=== PATIENT | male | born 1950 | race Caucasian/White ===

== ENCOUNTER 2024-02-05 17:30 | Inpatient (IN) | payer OTHER ==
[~2024-02-05] VITALS: Ht 162.6 cm; Wt 59.0 kg
[~2024-02-05 17:30] MED LIST: AVALIDE 300/12.1 TAB; TENORMIN100 M1; TOPROL XL200 MG
[2024-02-05] MEDS ORDERED: 0.9 % SODIUM CHLORIDE 250 ML IV STA (17:59)
[2024-02-05] MEDS ORDERED: 0.9 % SODIUM CHLORIDE 1,000 ML IV STA (18:01)
[2024-02-05 18:37] LABS: HEMOGLOBIN 10.6 g/dL (13-16.00); MEAN CELL VOLUME 102.6 fL (80.0-100.00); MEAN CORPUSCULAR HGB CONC 33.2 g/dl (32.0-36.0); PLATELET COUNT 201 K/uL (150-450); RED BLOOD COUNT 3.12 M/uL (4.00-6.00)
[2024-02-05 18:49] LABS: ALBUMIN 1.9 gm/dL (3.4-5.0); BILIRUBIN TOTAL 0.6 mg/dL (0.3-1.2); CALCIUM 7.1 mg/dL (8.5-10.1); GLOBULINA 3.2 G/DL (2.4-3.5); POTASSIUM 5.86 mEq/L (3.5-5.1); TOTAL PROTEIN 5.1 gm/dL (6.4-8.2)
[2024-02-05 18:50] LABS: MAGNESIUM 1.9 mg/dL (1.8-2.4)
[2024-02-05 18:56] LABS: GFR 4.13
[2024-02-05 18:57] LABS: INR 1.27; PROTHROMBIN TIME 13.6 SECONDS (9.0-11.5)
[2024-02-05 18:59] LABS: PHOSPHOROUS 10.1 mg/dL (2.5-4.9)
[2024-02-05 19:01] LABS: CREATININE SERUM 12.1 mg/dL (0.70-1.30)
[2024-02-05] MEDS ORDERED: SODIUM POLYSTYRENE SULFONATE 15 G/4 TSP TSP PO SCH (19:36)
[2024-02-05] MEDS ORDERED: INSULIN REGULAR, HUMAN 1,000 UNIT/10 ML UNITS IV ONE (19:45)
[2024-02-05] MEDS ORDERED: DEXTROSE 50 % IN WATER 0.5 G/ML VIAL IV ONE (19:45)
[2024-02-05] MEDS ORDERED: SODIUM BICARBONATE 100 MEQ in SODIUM CHLORIDE 0.45 % 1,000 ML IV ONE (19:45)
[2024-02-05] MEDS ORDERED: ACETAMINOPHEN 500 MG GEL..CAP PO PRN (19:45)
[2024-02-05] MEDS ORDERED: CALCIUM GLUCONATE 100 MG/ML VIAL IV ONE (19:45)
[2024-02-05] MEDS ORDERED: HEPARIN SODIUM,PORCINE 5,000 UNITS/ML VIAL IV STA (20:10)
[2024-02-05 20:15] VITALS: BP 103/50; O2SAT 96
[2024-02-05 20:15] LABS: ABG PH 7.224 (7.35-7.45); ABG PO2 62.7 mmHg (80-100); ABG pCO2 37.1 mmHg (35-45)
[2024-02-05 20:16] LABS: BASE EXCESS -11.8 mmol/l; SaO2 84.9 %; Tco2 16.1 mmol/l; allen test SATISFACTORY; o2 21 %; puncture site RADIAL RIGHT
[2024-02-05 20:26] VITALS: BP 103/50
[2024-02-05 20:41] LABS: URINE APPEARANCE Turbid; URINE BILIRRUBIN Small (NEGATIVE); URINE BLOOD Large; URINE COLOR Red; URINE GLUCOSE Negative (NEGATIVE); URINE KETONE Trace (NEGATIVE); URINE LEUKOCYTE Large; URINE NITRATE Negative; URINE UROBILINOGEN 0.2 E.U./dl
[2024-02-05 20:44] LABS: URINE EPITHELIAL CELLS 106.6 uL (0.0-38.8)
[2024-02-05] MEDS ORDERED: CITRIC ACID/SODIUM CITRATE 30 ML BLIST.PACK PO SCH (21:00)
[2024-02-05] MEDS ORDERED: PIPERACILLIN/TAZOBACTAM SODIUM 2.25 GM in DEXTROSE 5 % IN WATER 50 ML IV SCH (21:00)
[2024-02-05 21:10] LABS: URINE BACTERIA > 9821.5 uL (0.0-1933); URINE PROTEIN 300 (NEGATIVE); URINE RBC > 10558.9 uL (0.0-20.8); URINE WBC > 5548.3 uL (0.0-23.2)
[2024-02-05] MEDS ORDERED: TRAMADOL HCL 50 MG TABLET PO ONE (21:15)
[2024-02-06] VITALS (14 sets, daily range): BP systolic 75–142; BP diastolic 43–99; O2SAT 100
[2024-02-06 06:30] LABS: HEMATOCRIT 28.1 % (39.0-48.0); HEMOGLOBIN 9.6 g/dL (13-16.00); MEAN CELL VOLUME 102.2 fL (80.0-100.00); MEAN CORPUSCULAR HEMOGLOBIN 34.8 pg (27.00-32.0); PLATELET COUNT 183 K/uL (150-450); RED BLOOD COUNT 2.75 M/uL (4.00-6.00); RED CELL DISTRIBUTION WIDTH 15.1 % (11.5-14.5)
[2024-02-06 07:08] LABS: ALBUMIN 1.6 gm/dL (3.4-5.0); BILIRUBIN TOTAL 0.67 mg/dL (0.3-1.2); CALCIUM 6.8 mg/dL (8.5-10.1); GLOBULINA 2.7 G/DL (2.4-3.5); POTASSIUM 5.24 mEq/L (3.5-5.1); TOTAL PROTEIN 4.3 gm/dL (6.4-8.2)
[2024-02-06 07:25] LABS: GFR 4.34
[2024-02-06 07:28] LABS: CREATININE SERUM 11.6 mg/dL (0.70-1.30)
[2024-02-06 08:12] LABS: TSH 0.679 uIU/mL (0.358-3.74)
[2024-02-06] MEDS ORDERED: SODIUM POLYSTYRENE SULFONATE 15 G/4 TSP TSP PO SCH (09:00)
[2024-02-06] MEDS ORDERED: ENOXAPARIN SODIUM 30 MG/0.3 ML SYRINGE SUBCUTANEO SCH (09:00)
[2024-02-06] MEDS ORDERED: PANTOPRAZOLE SODIUM 40 MG/VIAL VIAL IV SCH (09:00)
[2024-02-06] MEDS ORDERED: SODIUM BICARBONATE 50MEQ/50ML VIAL IV SCH (10:45)
[2024-02-06] MEDS ORDERED: PIPERACILLIN/TAZOBACTAM SODIUM 2.25 GM VIAL IV SCH (13:00)
[2024-02-06] MEDS ORDERED: HEPARIN SODIUM,PORCINE 1,000 UNITS/ML VIAL SPEPROC PRN (13:15)
[2024-02-06] MEDS ORDERED: NOREPINEPHRINE BITARTRATE 8 MG IV SCH (13:30)
[2024-02-06] MEDS ORDERED: NOREPINEPHRINE BITARTRATE 8 MG in DEXTROSE 5 % IN WATER 250 ML IV SCH (13:45)
[2024-02-06] MEDS ORDERED: LACTOBACILLUS ACIDOPHILUS 1 CAP CAP PO SCH (17:00)
[2024-02-06] MEDS ORDERED: NOREPINEPHRINE BITARTRATE 4 MG in DEXTROSE 5 % IN WATER 250 ML IV SCH (17:00)
[2024-02-07] VITALS (11 sets, daily range): BP systolic 11–117; BP diastolic 53–69; O2SAT 98–100
[2024-02-07 15:50] LABS: HEMATOCRIT 27.6 % (39.0-48.0); HEMOGLOBIN 9.4 g/dL (13-16.00); MEAN CELL VOLUME 102.8 fL (80.0-100.00); PLATELET COUNT 191 K/uL (150-450); RED BLOOD COUNT 2.69 M/uL (4.00-6.00); RED CELL DISTRIBUTION WIDTH 14.7 % (11.5-14.5)
[2024-02-07 16:31] LABS: ALBUMIN 1.6 gm/dL (3.4-5.0); CALCIUM 7.1 mg/dL (8.5-10.1); GFR 7.36; PHOSPHOROUS 7.4 mg/dL (2.5-4.9); POTASSIUM 3.57 mEq/L (3.5-5.1)
[2024-02-07 16:54] LABS: CREATININE SERUM 7.34 mg/dL (0.70-1.30)
[2024-02-07] MEDS ORDERED: Calcium Acetate 667 MG CAP PO SCH (22:07)
[2024-02-07] MEDS ORDERED: CITRIC ACID/SODIUM CITRATE 30 ML BLIST.PACK PO SCH (22:07)
[2024-02-08 00:37] LABS: MEAN CELL VOLUME 102.3 fL (80.0-100.00); MEAN CORPUSCULAR HEMOGLOBIN 34.4 pg (27.00-32.0); MEAN CORPUSCULAR HGB CONC 33.6 g/dl (32.0-36.0); PLATELET COUNT 158 K/uL (150-450); RED BLOOD COUNT 2.09 M/uL (4.00-6.00)
[2024-02-08 00:38] LABS: HEMATOCRIT 21.4 % (39.0-48.0); HEMOGLOBIN 7.2 g/dL (13-16.00)
[2024-02-08 04:00] VITALS: BP 89/54; O2SAT 100
[2024-02-08 07:31] VITALS: BP 103/61; O2SAT 100
[2024-02-08] MEDS ORDERED: PANTOPRAZOLE SODIUM 80 MG in 0.9 % SODIUM CHLORIDE 100 ML IV SCH (07:45)
[2024-02-08] MEDS ORDERED: AMINO ACIDS/PROTEIN HYDROLYS 30 ML BLIST.PACK PO SCH (09:00)
[2024-02-08 12:34] VITALS: BP 110/57
[2024-02-08 15:57] VITALS: BP 111/74; O2SAT 98
[2024-02-08 20:00] VITALS: BP 120/66; O2SAT 95
[2024-02-08 23:32] VITALS: BP 112/61; O2SAT 97
[2024-02-09 03:25] LABS: HEMATOCRIT 25.5 % (39.0-48.0); MEAN CELL VOLUME 96.5 fL (80.0-100.00); MEAN CORPUSCULAR HEMOGLOBIN 32.9 pg (27.00-32.0); MEAN CORPUSCULAR HGB CONC 34.1 g/dl (32.0-36.0); PLATELET COUNT 101 K/uL (150-450); RED BLOOD COUNT 2.64 M/uL (4.00-6.00); RED CELL DISTRIBUTION WIDTH 17.1 % (11.5-14.5)
[2024-02-09 03:26] LABS: HEMOGLOBIN 8.7 g/dL (13-16.00)
[2024-02-09 03:37] LABS: INR 1.18; PARTIAL THROMBOPLASTIN TIME 30.4 SECONDS (22.0-34.0); PROTHROMBIN TIME 12.7 SECONDS (9.0-11.5)
[2024-02-09 05:24] VITALS: BP 122/64; O2SAT 99
[2024-02-09 07:28] VITALS: BP 137/77; O2SAT 99
[2024-02-09] MEDS ORDERED: EPOETIN ALFA-EPBX 10,000 UNIT/ML VIAL (Retacrit) SUBCUTANEO SCH (09:00)
[2024-02-09 09:08] LABS: URINE PROT QUANT 24HR 164.2 MG/DL
[2024-02-09 09:21] LABS: CREATINE CLEARANCE 0.6 ML/MIN (97-137); CREATININE SERUM 8.28 mg/dL (0.8-1.3)
[2024-02-09 09:22] LABS: URINE PROT QUANT 24 HR 164.2 MG/24HR (42-225)
[2024-02-09 12:14] VITALS: BP 132/61; O2SAT 100
[2024-02-09 15:27] VITALS: BP 121/63; O2SAT 97
[2024-02-09 20:00] VITALS: BP 128/73; O2SAT 100
[2024-02-09 23:18] LABS: HEMATOCRIT 29.7 % (39.0-48.0); MEAN CELL VOLUME 92.4 fL (80.0-100.00); MEAN CORPUSCULAR HGB CONC 35.2 g/dl (32.0-36.0); RED BLOOD COUNT 3.21 M/uL (4.00-6.00); RED CELL DISTRIBUTION WIDTH 17.6 % (11.5-14.5)
[2024-02-09 23:30] LABS: HEMOGLOBIN 10.4 g/dL (13-16.00); MEAN CORPUSCULAR HEMOGLOBIN 32.3 pg (27.00-32.0); PLATELET COUNT 94 K/uL (150-450)
[2024-02-10] VITALS: BP 141/52; O2SAT 97
[2024-02-10] MEDS ORDERED: DIATRIZOATE MEGLUMINE, SODIUM 30 ML BOTTLE PO ONE (06:00)
[2024-02-10 07:48] VITALS: BP 133/68; O2SAT 99
[2024-02-10 12:00] VITALS: BP 141/71; O2SAT 92
[2024-02-10 16:00] VITALS: BP 137/73; O2SAT 100
[2024-02-10 20:00] VITALS: BP 143/77; O2SAT 100
[2024-02-10 23:38] VITALS: BP 131/84; O2SAT 96
[2024-02-11] VITALS (7 sets, daily range): BP systolic 125–143; BP diastolic 74–79; O2SAT 95–100
[2024-02-11] MEDS ORDERED: ALLOPURINOL 300 MG TABLET PO SCH (18:21)
[2024-02-11] MEDS ORDERED: TAMSULOSIN HCL 0.4 MG CAP PO SCH (21:00)
[2024-02-12 04:00] VITALS: BP 103/70; O2SAT 96
[2024-02-12 07:06] VITALS: BP 126/75; O2SAT 100
[2024-02-12 12:22] VITALS: BP 121/70; O2SAT 100
[2024-02-12 13:31] LABS: HEMATOCRIT 24.8 % (39.0-48.0); MEAN CELL VOLUME 92.7 fL (80.0-100.00); MEAN CORPUSCULAR HEMOGLOBIN 32.5 pg (27.00-32.0); MEAN CORPUSCULAR HGB CONC 34.9 g/dl (32.0-36.0); RED BLOOD COUNT 2.67 M/uL (4.00-6.00); RED CELL DISTRIBUTION WIDTH 18.5 % (11.5-14.5)
[2024-02-12 13:32] LABS: HEMOGLOBIN 8.7 g/dL (13-16.00); PLATELET COUNT 116 K/uL (150-450)
[2024-02-12 14:03] LABS: INR 1.14; PARTIAL THROMBOPLASTIN TIME 28.3 SECONDS (22.0-34.0); PROTHROMBIN TIME 12.3 SECONDS (9.0-11.5)
[2024-02-12 14:22] LABS: ALBUMIN 1.7 gm/dL (3.4-5.0); BILIRUBIN TOTAL 0.56 mg/dL (0.3-1.2); CALCIUM 8.9 mg/dL (8.5-10.1); GFR 13.25; GLOBULINA 2.9 G/DL (2.4-3.5); POTASSIUM 3.23 mEq/L (3.5-5.1); TOTAL PROTEIN 4.6 gm/dL (6.4-8.2)
[2024-02-12 14:26] LABS: CREATININE SERUM 4.41 mg/dL (0.70-1.30)
[2024-02-12 15:40] VITALS: BP 123/79; O2SAT 98
[2024-02-12 20:00] VITALS: BP 135/82; O2SAT 100
[2024-02-12 23:35] VITALS: BP 152/91; O2SAT 97
[2024-02-13 04:04] LABS: HEMATOCRIT 25.1 % (39.0-48.0); MEAN CELL VOLUME 90.4 fL (80.0-100.00); MEAN CORPUSCULAR HEMOGLOBIN 31.7 pg (27.00-32.0); MEAN CORPUSCULAR HGB CONC 34.9 g/dl (32.0-36.0); RED BLOOD COUNT 2.77 M/uL (4.00-6.00)
[2024-02-13 04:05] LABS: HEMOGLOBIN 8.8 g/dL (13-16.00); PLATELET COUNT 109 K/uL (150-450)
[2024-02-13 06:52] VITALS: BP 125/66; O2SAT 98
[2024-02-13 13:59] VITALS: BP 122/92; O2SAT 98
[2024-02-13 15:31] VITALS: BP 146/79; O2SAT 98
[2024-02-13 20:10] VITALS: BP 150/80; O2SAT 100
[2024-02-13 22:13] LABS: HEMATOCRIT 24.2 % (39.0-48.0); HEMOGLOBIN 8.4 g/dL (13-16.00); MEAN CELL VOLUME 91.4 fL (80.0-100.00); MEAN CORPUSCULAR HEMOGLOBIN 31.8 pg (27.00-32.0); MEAN CORPUSCULAR HGB CONC 34.6 g/dl (32.0-36.0); PLATELET COUNT 136 K/uL (150-450); RED BLOOD COUNT 2.64 M/uL (4.00-6.00); RED CELL DISTRIBUTION WIDTH 16.8 % (11.5-14.5)
[2024-02-13 23:29] VITALS: BP 151/98; O2SAT 95
[2024-02-14 04:00] VITALS: BP 130/71; O2SAT 100
[2024-02-14 07:25] VITALS: BP 126/69; O2SAT 100
[2024-02-14 12:00] VITALS: BP 142/74; O2SAT 100
[2024-02-14 15:05] VITALS: BP 132/68; O2SAT 100
[2024-02-14 20:11] VITALS: BP 130/83; O2SAT 100
[2024-02-14 23:35] VITALS: BP 131/76; O2SAT 99
[2024-02-15 02:48] LABS: MEAN CELL VOLUME 91.4 fL (80.0-100.00); MEAN CORPUSCULAR HGB CONC 34.9 g/dl (32.0-36.0); PLATELET COUNT 167 K/uL (150-450); RED BLOOD COUNT 2.45 M/uL (4.00-6.00); RED CELL DISTRIBUTION WIDTH 17.2 % (11.5-14.5)
[2024-02-15 02:51] LABS: HEMATOCRIT 22.3 % (39.0-48.0); HEMOGLOBIN 7.8 g/dL (13-16.00); MEAN CORPUSCULAR HEMOGLOBIN 31.8 pg (27.00-32.0)
[2024-02-15 04:00] VITALS: BP 99/52; O2SAT 100
[2024-02-15 07:39] VITALS: BP 99/52; O2SAT 100
[2024-02-15 12:00] VITALS: BP 118/65; O2SAT 100
[2024-02-15] MEDS ORDERED: PEG3350/SOD SULF,BICARB,CL/KCL 4,000 ML GALLON PO NR (14:00)
[2024-02-15 15:18] VITALS: BP 73/51; O2SAT 100
[2024-02-15 20:46] VITALS: BP 130/73; O2SAT 100
[2024-02-15 23:46] VITALS: BP 115/65; O2SAT 100
[2024-02-16 04:00] VITALS: BP 119/75; O2SAT 100
[2024-02-16] MEDS ORDERED: PANTOPRAZOLE SODIUM 80 MG in 0.9 % SODIUM CHLORIDE 100 ML IV SCH (04:15)
[2024-02-16 07:22] VITALS: BP 113/64; O2SAT 99
[2024-02-16 08:38] LABS: MEAN CELL VOLUME 89.7 fL (80.0-100.00); MEAN CORPUSCULAR HGB CONC 34.8 g/dl (32.0-36.0); PLATELET COUNT 158 K/uL (150-450); RED BLOOD COUNT 2.68 M/uL (4.00-6.00)
[2024-02-16 08:40] LABS: HEMOGLOBIN 8.3 g/dL (13-16.00); MEAN CORPUSCULAR HEMOGLOBIN 30.9 pg (27.00-32.0)
[2024-02-16] MEDS ORDERED: MIDAZOLAM HCL 2 MG/2 ML VIAL IV PUSH ONE (11:50)
[2024-02-16 13:00] VITALS: BP 85/56; O2SAT 100
[2024-02-16 15:00] VITALS: BP 118/80; O2SAT 96
[2024-02-16] MEDS ORDERED: fentaNYL CITRATE 50 MCG/ML AMPUL IV PUSH ONE (15:15)
[2024-02-16 20:00] VITALS: BP 105/80; O2SAT 100
[2024-02-16 23:13] VITALS: BP 131/80; O2SAT 95
[2024-02-16 23:54] LABS: HEMATOCRIT 33.4 % (39.0-48.0); HEMOGLOBIN 11.7 g/dL (13-16.00); MEAN CELL VOLUME 89.4 fL (80.0-100.00); MEAN CORPUSCULAR HEMOGLOBIN 31.4 pg (27.00-32.0); MEAN CORPUSCULAR HGB CONC 35.1 g/dl (32.0-36.0); PLATELET COUNT 149 K/uL (150-450); RED BLOOD COUNT 3.74 M/uL (4.00-6.00); RED CELL DISTRIBUTION WIDTH 15.7 % (11.5-14.5)
[2024-02-17] VITALS (17 sets, daily range): BP systolic 79–136; BP diastolic 47–77; O2SAT 16–100
[2024-02-17] MEDS ORDERED: NOREPINEPHRINE BITARTRATE 8 MG in DEXTROSE 5 % IN WATER 250 ML IV SCH (08:00)
[2024-02-17] MEDS ORDERED: 0.9 % SODIUM CHLORIDE 500 ML IV ONE (20:15)
[2024-02-18] VITALS (17 sets, daily range): BP systolic 75–142; BP diastolic 41–93; O2SAT 89–100
[2024-02-18 10:18] LABS: MEAN CELL VOLUME 90.9 fL (80.0-100.00); MEAN CORPUSCULAR HGB CONC 34.3 g/dl (32.0-36.0); PLATELET COUNT 203 K/uL (150-450); RED BLOOD COUNT 1.68 M/uL (4.00-6.00); RED CELL DISTRIBUTION WIDTH 16.3 % (11.5-14.5)
[2024-02-18 10:20] LABS: HEMATOCRIT 15.3 % (39.0-48.0); HEMOGLOBIN 5.2 g/dL (13-16.00); MEAN CORPUSCULAR HEMOGLOBIN 30.9 pg (27.00-32.0)
[2024-02-18] MEDS ORDERED: OCTREOTIDE ACETATE 0.05MG/ML (50MCG/ML) AMPUL IV STA (11:21)
[2024-02-18] MEDS ORDERED: OCTREOTIDE ACETATE 1,250 MCG in 0.9 % SODIUM CHLORIDE 250 ML IV SCH (13:00)
[2024-02-18 18:25] LABS: MEAN CELL VOLUME 84.2 fL (80.0-100.00); MEAN CORPUSCULAR HGB CONC 34.5 g/dl (32.0-36.0); PLATELET COUNT 143 K/uL (150-450); RED BLOOD COUNT 2.36 M/uL (4.00-6.00); RED CELL DISTRIBUTION WIDTH 17.8 % (11.5-14.5)
[2024-02-18 19:18] LABS: MEAN CORPUSCULAR HEMOGLOBIN 29.2 pg (27.00-32.0)
[2024-02-18 19:19] LABS: HEMATOCRIT 19.9 % (39.0-48.0); HEMOGLOBIN 6.9 g/dL (13-16.00)
[2024-02-19] VITALS (22 sets, daily range): BP systolic 81–165; BP diastolic 22–91; O2SAT 97–100
[2024-02-19] MEDS ORDERED: ERYTHROMYCIN LACTOBIONATE 500 MG VIAL IV NR (09:30)
[2024-02-19 12:40] LABS: MEAN CELL VOLUME 84.6 fL (80.0-100.00); MEAN CORPUSCULAR HGB CONC 38.3 g/dl (32.0-36.0); RED BLOOD COUNT 2.53 M/uL (4.00-6.00); RED CELL DISTRIBUTION WIDTH 17.5 % (11.5-14.5)
[2024-02-19 12:42] LABS: HEMATOCRIT 21.4 % (39.0-48.0); HEMOGLOBIN 8.2 g/dL (13-16.00); MEAN CORPUSCULAR HEMOGLOBIN 32.4 pg (27.00-32.0); PLATELET COUNT 112 K/uL (150-450)
[2024-02-19] MEDS ORDERED: OCTREOTIDE ACETATE IV SCH (13:00)
[2024-02-19] MEDS ORDERED: MIDAZOLAM HCL 2 MG/2 ML VIAL IV ONE (15:00)
[2024-02-20] VITALS (9 sets, daily range): BP systolic 107–138; BP diastolic 59–86; O2SAT 98–100
[2024-02-20 01:27] LABS: MEAN CELL VOLUME 84.6 fL (80.0-100.00); MEAN CORPUSCULAR HEMOGLOBIN 28.9 pg (27.00-32.0); MEAN CORPUSCULAR HGB CONC 34.2 g/dl (32.0-36.0); RED CELL DISTRIBUTION WIDTH 16.9 % (11.5-14.5)
[2024-02-20 01:28] LABS: PLATELET COUNT 66 K/uL (150-450)
[2024-02-20 01:30] LABS: HEMOGLOBIN 11.3 g/dL (13-16.00)
[2024-02-20 10:13] LABS: ALBUMIN 1.3 gm/dL (3.4-5.0); BILIRUBIN TOTAL 0.77 mg/dL (0.3-1.2); CALCIUM 8.7 mg/dL (8.5-10.1); CREATININE SERUM 3.45 mg/dL (0.70-1.30); GFR 17.59; GLOBULINA 2.3 G/DL (2.4-3.5); POTASSIUM 3.59 mEq/L (3.5-5.1); TOTAL PROTEIN 3.6 gm/dL (6.4-8.2)
[2024-02-21 04:02] VITALS: BP 146/81; O2SAT 97
[2024-02-21 08:03] VITALS: BP 138/84; O2SAT 97
[2024-02-21 10:16] LABS: HEMATOCRIT 29.4 % (39.0-48.0); HEMOGLOBIN 10.1 g/dL (13-16.00); MEAN CELL VOLUME 85.7 fL (80.0-100.00); MEAN CORPUSCULAR HEMOGLOBIN 29.4 pg (27.00-32.0); MEAN CORPUSCULAR HGB CONC 34.3 g/dl (32.0-36.0); RED BLOOD COUNT 3.43 M/uL (4.00-6.00); RED CELL DISTRIBUTION WIDTH 17.1 % (11.5-14.5)
[2024-02-21 11:00] LABS: PLATELET COUNT 62 K/uL (150-450)
[2024-02-21 12:00] VITALS: BP 133/90; O2SAT 100
[2024-02-21] MEDS ORDERED: levoFLOXacin IN DEXTROSE 5 % 5 MG/ML PIGGYBAG IV SCH (12:00)
[2024-02-21 15:10] VITALS: BP 121/73; O2SAT 100
[2024-02-21 20:15] VITALS: BP 136/76; O2SAT 100
[2024-02-21] MEDS ORDERED: PANTOPRAZOLE SODIUM 80 MG in 0.9 % SODIUM CHLORIDE 100 ML IV SCH (20:30)
[2024-02-21 23:36] VITALS: BP 136/76; O2SAT 98
[2024-02-22 04:16] VITALS: BP 135/77; O2SAT 97
[2024-02-22 07:34] VITALS: BP 137/77; O2SAT 98
[2024-02-22] MEDS ORDERED: AZTREONAM 2,000 MG VIAL IV SCH (09:00)
[2024-02-22 09:28] LABS: HEMATOCRIT 27.7 % (39.0-48.0); HEMOGLOBIN 9.6 g/dL (13-16.00); MEAN CORPUSCULAR HEMOGLOBIN 29.3 pg (27.00-32.0); MEAN CORPUSCULAR HGB CONC 34.5 g/dl (32.0-36.0); RED BLOOD COUNT 3.26 M/uL (4.00-6.00); RED CELL DISTRIBUTION WIDTH 17.1 % (11.5-14.5)
[2024-02-22 09:29] LABS: PLATELET COUNT 62 K/uL (150-450)
[2024-02-22 09:51] LABS: CALCIUM 8.6 mg/dL (8.5-10.1); CREATININE SERUM 2.58 mg/dL (0.70-1.30); GFR 24.6; POTASSIUM 3.13 mEq/L (3.5-5.1)
[2024-02-22 09:53] LABS: MANUAL PLATELET COUNT 58
[2024-02-22] MEDS ORDERED: POTASSIUM CHLORIDE 20MEQ/100ML H2O PB IV NR (10:15)
[2024-02-22] MEDS ORDERED: DEXTROSE 5 % IN WATER 1,000 ML IV SCH (10:15)
[2024-02-22 12:00] VITALS: BP 141/86; O2SAT 100
[2024-02-22 15:42] VITALS: BP 129/77; O2SAT 100
[2024-02-22] MEDS ORDERED: PEG3350/SOD SULF,BICARB,CL/KCL 4,000 ML GALLON PO NR (19:00)
[2024-02-22 20:00] VITALS: BP 132/80; O2SAT 100
[2024-02-22 23:39] VITALS: BP 122/81; O2SAT 100
[2024-02-23 04:04] VITALS: BP 141/79; O2SAT 100
[2024-02-23 07:02] VITALS: BP 134/77; O2SAT 100
[2024-02-23 08:07] LABS: HEMATOCRIT 28.3 % (39.0-48.0); HEMOGLOBIN 9.6 g/dL (13-16.00); MEAN CORPUSCULAR HGB CONC 34.1 g/dl (32.0-36.0); RED BLOOD COUNT 3.33 M/uL (4.00-6.00); RED CELL DISTRIBUTION WIDTH 17.2 % (11.5-14.5)
[2024-02-23 08:13] LABS: PLATELET COUNT 70 K/uL (150-450)
[2024-02-23 08:21] LABS: CALCIUM 8.5 mg/dL (8.5-10.1); CREATININE SERUM 3.31 mg/dL (0.70-1.30); GFR 18.45; MAGNESIUM 1.6 mg/dL (1.8-2.4); PHOSPHOROUS 3.6 mg/dL (2.5-4.9); POTASSIUM 3.25 mEq/L (3.5-5.1)
[2024-02-23 12:33] VITALS: BP 136/90; O2SAT 100
[2024-02-23] MEDS ORDERED: POTASSIUM CHLORIDE 20MEQ/100ML H2O PB IV NR (13:00)
[2024-02-23] MEDS ORDERED: MIDAZOLAM HCL 2 MG/2 ML VIAL IV STA (13:59)
[2024-02-23] MEDS ORDERED: FentaNYL CITRATE/PF 50MCG/ML 2ML VIAL IJ STA (13:59)
[2024-02-23 15:24] VITALS: BP 126/82; O2SAT 100
[2024-02-23 20:00] VITALS: BP 98/69; O2SAT 100
[2024-02-23] MEDS ORDERED: PANTOPRAZOLE SODIUM 40 MG/VIAL VIAL IV PUSH SCH (21:00)
[2024-02-23 23:12] VITALS: BP 104/60; O2SAT 99
[2024-02-24 04:00] VITALS: BP 122/73; O2SAT 99
[2024-02-24 07:20] VITALS: BP 133/74; O2SAT 100
[2024-02-24 12:09] VITALS: BP 98/63; O2SAT 100
[2024-02-24 15:23] VITALS: BP 138/74; O2SAT 99
[2024-02-25 07:08] LABS: HEMATOCRIT 24.9 % (39.0-48.0); MEAN CELL VOLUME 84.7 fL (80.0-100.00); MEAN CORPUSCULAR HGB CONC 35.1 g/dl (32.0-36.0); RED BLOOD COUNT 2.94 M/uL (4.00-6.00); RED CELL DISTRIBUTION WIDTH 17.7 % (11.5-14.5)
[2024-02-25 07:25] LABS: MEAN CORPUSCULAR HEMOGLOBIN 29.5 pg (27.00-32.0); PLATELET COUNT 69 K/uL (150-450)
[2024-02-25 07:28] LABS: HEMOGLOBIN 8.7 g/dL (13-16.00)
[2024-02-25 08:35] VITALS: BP 133/78; O2SAT 93
[2024-02-25] MEDS ORDERED: SOD FERRIC GLUC COMPLX/SUCROSE 62.5 MG in 0.9 % SODIUM CHLORIDE 50 ML IV SCH (09:00)
[2024-02-25] MEDS ORDERED: FOLIC ACID 1 MG TABLET PO SCH (09:00)
[2024-02-25] MEDS ORDERED: Cyanocobalamin/Mecobalamin 1 TAB.SL SL SCH (09:00)
[2024-02-25 15:55] LABS: PARTIAL THROMBOPLASTIN TIME 32.9 SECONDS (22.0-34.0); PROTHROMBIN TIME 14.9 SECONDS (9.0-11.5)
[2024-02-25 16:16] LABS: COL EPI 98 SECONDS (82-175)
[2024-02-25 19:28] VITALS: BP 99/66; O2SAT 96
[2024-02-26 01:08] VITALS: BP 151/89; O2SAT 97
[2024-02-26 09:11] VITALS: BP 112/66; O2SAT 96
[2024-02-27 00:44] VITALS: BP 122/70; O2SAT 94
[2024-02-27] MEDS ORDERED: TUBERCULIN,PURIF.PROT.DERIV. 10 SKIN.TEST SKIN.TEST ID NR (09:00)
[2024-02-27 09:36] VITALS: BP 113/66; O2SAT 98
[2024-02-27 15:03] LABS: MEAN CELL VOLUME 89.3 fL (80.0-100.00); RED BLOOD COUNT 2.25 M/uL (4.00-6.00); RED CELL DISTRIBUTION WIDTH 17.7 % (11.5-14.5)
[2024-02-27 15:29] LABS: MEAN CORPUSCULAR HEMOGLOBIN 30.2 pg (27.00-32.0)
[2024-02-27 15:31] LABS: HEMATOCRIT 20.1 % (39.0-48.0); HEMOGLOBIN 6.8 g/dL (13-16.00)
[2024-02-27 15:32] LABS: PLATELET COUNT 112 K/uL (150-450)
[2024-02-27 15:35] LABS: ALBUMIN 1.3 gm/dL (3.4-5.0); BILIRUBIN TOTAL 0.31 mg/dL (0.3-1.2); CALCIUM 8.5 mg/dL (8.5-10.1); CREATININE SERUM 3.22 mg/dL (0.70-1.30); GFR 19.05; GLOBULINA 2.5 G/DL (2.4-3.5); POTASSIUM 3.23 mEq/L (3.5-5.1); TOTAL PROTEIN 3.8 gm/dL (6.4-8.2)
[2024-02-27 18:12] VITALS: BP 106/62; O2SAT 97
[2024-02-27 22:45] LABS: HEMATOCRIT 26.6 % (39.0-48.0); MEAN CELL VOLUME 89.5 fL (80.0-100.00); MEAN CORPUSCULAR HGB CONC 34.6 g/dl (32.0-36.0); RED BLOOD COUNT 2.97 M/uL (4.00-6.00)
[2024-02-27 22:47] LABS: MEAN CORPUSCULAR HEMOGLOBIN 30.9 pg (27.00-32.0)
[2024-02-27 22:48] LABS: HEMOGLOBIN 9.2 g/dL (13-16.00); PLATELET COUNT 84 K/uL (150-450)
[2024-02-28 05:17] VITALS: BP 105/65; O2SAT 98
[2024-02-28 08:26] VITALS: BP 110/65; O2SAT 98
[2024-02-28] MEDS ORDERED: PANTOPRAZOLE SODIUM 40 MG/VIAL VIAL IV PUSH SCH (09:00)
[2024-02-28 16:26] VITALS: BP 112/75
[2024-02-28] MEDS ORDERED: POTASSIUM CHLORIDE 20MEQ/100ML H2O PB IV SCH (21:00)
[2024-02-29 02:03] VITALS: BP 80/44; O2SAT 97
[2024-02-29 04:02] VITALS: BP 104/63
[2024-02-29 08:00] VITALS: BP 95/59; O2SAT 94
[2024-02-29 08:17] LABS: MEAN CELL VOLUME 91.7 fL (80.0-100.00); MEAN CORPUSCULAR HGB CONC 34.9 g/dl (32.0-36.0); RED BLOOD COUNT 2.14 M/uL (4.00-6.00); RED CELL DISTRIBUTION WIDTH 17.4 % (11.5-14.5)
[2024-02-29 08:25] LABS: HEMATOCRIT 19.7 % (39.0-48.0); MEAN CORPUSCULAR HEMOGLOBIN 32.2 pg (27.00-32.0); PLATELET COUNT 69 K/uL (150-450)
[2024-02-29 08:46] LABS: HEMOGLOBIN 6.9 g/dL (13-16.00)
[2024-02-29] MEDS ORDERED: 0.9 % SODIUM CHLORIDE 1,000 ML IV SCH ×2 (13:30→23:00)
[2024-02-29 13:47] VITALS: BP 87/49
[2024-02-29 17:10] VITALS: BP 94/59
[2024-02-29 20:27] VITALS: BP 103/61
[2024-03-01] VITALS: BP 105/59; O2SAT 97
[2024-03-01] MEDS ORDERED: SOD FERRIC GLUC COMPLX/SUCROSE 62.5 MG/5 ML AMPUL IV SCH (09:39)
[2024-03-01 10:03] VITALS: BP 100/52; O2SAT 98
[2024-03-01 17:38] VITALS: BP 119/68
[2024-03-01] MEDS ORDERED: HEPARIN SODIUM,PORCINE 5,000 UNITS/ML VIAL IV NR (18:00)
[2024-03-01 21:55] LABS: HEMOGLOBIN 10.4 g/dL (13-16.00); MEAN CELL VOLUME 89.1 fL (80.0-100.00); MEAN CORPUSCULAR HEMOGLOBIN 30.9 pg (27.00-32.0); MEAN CORPUSCULAR HGB CONC 34.7 g/dl (32.0-36.0); PLATELET COUNT 55 K/uL (150-450); RED BLOOD COUNT 3.36 M/uL (4.00-6.00); RED CELL DISTRIBUTION WIDTH 15.2 % (11.5-14.5)
[2024-03-02 00:48] VITALS: BP 143/73; O2SAT 96
[2024-03-02] MEDS ORDERED: PANTOPRAZOLE SODIUM 40 MG TABLET.DR PO SCH (09:00)
[2024-03-02 09:06] VITALS: BP 141/77
[2024-03-02 14:41] LABS: ob POSITIVE (NEGATIVE)
[2024-03-02 16:48] VITALS: BP 132/73; O2SAT 97
[2024-03-02 21:49] VITALS: BP 153/78; O2SAT 99
[2024-03-03 00:58] VITALS: BP 152/85; O2SAT 99
[2024-03-03 05:05] LABS: hav igm Negative (Negative); hcv Non Reactive (Non Reactive); hep b c Negative (Negative); hep b s ag Negative (Negative)
[2024-03-03 09:38] VITALS: BP 105/51; O2SAT 97
[2024-03-03 16:38] VITALS: BP 147/84; O2SAT 98
[2024-03-03] MEDS ORDERED: HEPARIN SODIUM,PORCINE 5,000 UNITS/ML VIAL IV NR (17:30)
[2024-03-04 02:04] VITALS: BP 100/50; O2SAT 96
[2024-03-04 07:05] LABS: HEMOGLOBIN 10.5 g/dL (13-16.00); MEAN CELL VOLUME 90.9 fL (80.0-100.00); MEAN CORPUSCULAR HEMOGLOBIN 31.7 pg (27.00-32.0); MEAN CORPUSCULAR HGB CONC 34.9 g/dl (32.0-36.0); RED CELL DISTRIBUTION WIDTH 16.4 % (11.5-14.5)
[2024-03-04 07:20] LABS: ALBUMIN 1.2 gm/dL (3.4-5.0); CALCIUM 8.2 mg/dL (8.5-10.1); CREATININE SERUM 2.02 mg/dL (0.70-1.30); GFR 32.63; PHOSPHOROUS 2.8 mg/dL (2.5-4.9); POTASSIUM 3.39 mEq/L (3.5-5.1)
[2024-03-04 07:23] LABS: PLATELET COUNT 43 K/uL (150-450)
[2024-03-04 08:32] VITALS: BP 120/70; O2SAT 93
[2024-03-04 18:13] VITALS: BP 104/74; O2SAT 98
[2024-03-05 01:32] VITALS: BP 148/82
[2024-03-05 09:00] VITALS: BP 120/73; O2SAT 95
[2024-03-05] MEDS ORDERED: HEPARIN SODIUM,PORCINE 5,000 UNITS/ML VIAL IV NR (17:30)
[2024-03-05 20:03] VITALS: BP 130/78
[2024-03-06 00:11] VITALS: BP 94/52; O2SAT 97
[2024-03-06 09:19] VITALS: BP 101/65
[2024-03-06 16:23] VITALS: BP 119/60
[2024-03-07 03:47] VITALS: BP 107/72; O2SAT 96
[2024-03-07 08:53] VITALS: BP 118/68; O2SAT 96
[2024-03-07 16:36] VITALS: BP 116/69
[2024-03-08 02:22] VITALS: BP 129/72; O2SAT 98
[2024-03-08 07:04] LABS: HEMATOCRIT 31.8 % (39.0-48.0); HEMOGLOBIN 11.1 g/dL (13-16.00); MEAN CELL VOLUME 93.9 fL (80.0-100.00); MEAN CORPUSCULAR HEMOGLOBIN 32.7 pg (27.00-32.0); MEAN CORPUSCULAR HGB CONC 34.8 g/dl (32.0-36.0); RED BLOOD COUNT 3.39 M/uL (4.00-6.00)
[2024-03-08 07:09] LABS: ALBUMIN 1.1 gm/dL (3.4-5.0); CALCIUM 8.5 mg/dL (8.5-10.1); CREATININE SERUM 3.27 mg/dL (0.70-1.30); GFR 18.72; PHOSPHOROUS 3.4 mg/dL (2.5-4.9); POTASSIUM 3.22 mEq/L (3.5-5.1)
[2024-03-08 07:16] LABS: PLATELET COUNT 56 K/uL (150-450)
[2024-03-08 08:49] LABS: RED CELL DISTRIBUTION WIDTH 27.5 % (11.5-14.5)
[2024-03-08] MEDS ORDERED: TOPROL XL50 M1 PO (11:32)
[2024-03-08] MEDS ORDERED: INTEGRA PLUS C1 EACH PO (11:32)
[2024-03-08] MEDS ORDERED: PANTOPRAZOLE SO40 MG PO (11:32)
[2024-03-08] MEDS ORDERED: ALLOPURINOL300 MG PO (11:32)
[2024-03-08] MEDS ORDERED: FOLIC ACID1 MG PO (11:32)
[2024-03-08] MEDS ORDERED: Neurin-Sl Tablet Sl SL (11:32)
[2024-03-08] MEDS ORDERED: TAMS0.4C PO (11:32)
== END 2024-03-08 14:02 | disposition home or self-care (01) | DRG 314 ==
LOC: ER 17:30 → ICU-2 19:38 → ICU 19:38 → MEDI 19:38 → ICU 02-06 00:10 → SURH 02-24 21:12 → MEDI 02-25 15:42
PROVIDERS: Emergency Medicine; General Practice; Internal Medicine; Internal Medicine Gastroenterology; Internal Medicine Geriatric Medicine; Internal Medicine Hematology & Oncology; Specialist; Specialist/Technologist, Other Nephrology; ADMIT Internal Medicine; ATTEND Internal Medicine
PROC: 0JHL3XZ Insertion of Tunneled Vascular Access Device into Right Upper Leg Subcutaneous Tissue and Fascia, Percutaneous Approach (ICD-10-PCS; principal; 2024-02-05)
PROC: BT4JZZZ Ultrasonography of Kidneys and Bladder (ICD-10-PCS; 2024-02-05)
PROC: 5A1D70Z Performance of Urinary Filtration, Intermittent, Less than 6 Hours Per Day (ICD-10-PCS; 2024-02-06)
PROC: B24BYZZ Ultrasonography of Heart with Aorta using Other Contrast (ICD-10-PCS; 2024-02-06)
PROC: 30243N1 Transfusion of Nonautologous Red Blood Cells into Central Vein, Percutaneous Approach (ICD-10-PCS; 2024-02-08)
PROC: 5A1D70Z Performance of Urinary Filtration, Intermittent, Less than 6 Hours Per Day (ICD-10-PCS; 2024-02-09)
PROC: BW21YZZ Computerized Tomography (CT Scan) of Abdomen and Pelvis using Other Contrast (ICD-10-PCS; 2024-02-09)
PROC: 5A1D70Z Performance of Urinary Filtration, Intermittent, Less than 6 Hours Per Day (ICD-10-PCS; 2024-02-11)
PROC: 5A1D70Z Performance of Urinary Filtration, Intermittent, Less than 6 Hours Per Day (ICD-10-PCS; 2024-02-13)
PROC: 5A1D70Z Performance of Urinary Filtration, Intermittent, Less than 6 Hours Per Day (ICD-10-PCS; 2024-02-16)
PROC: 02HV33Z Insertion of Infusion Device into Superior Vena Cava, Percutaneous Approach (ICD-10-PCS; 2024-02-17)
PROC: 5A1D70Z Performance of Urinary Filtration, Intermittent, Less than 6 Hours Per Day (ICD-10-PCS; 2024-02-19)
PROC: CD171ZZ Planar Nuclear Medicine Imaging of Gastrointestinal Tract using Technetium 99m (Tc-99m) (ICD-10-PCS; 2024-02-20)
PROC: 05HM33Z Insertion of Infusion Device into Right Internal Jugular Vein, Percutaneous Approach (ICD-10-PCS; 2024-02-21)
PROC: 5A1D70Z Performance of Urinary Filtration, Intermittent, Less than 6 Hours Per Day (ICD-10-PCS; 2024-02-21)
PROC: 4A12X4Z Monitoring of Cardiac Electrical Activity, External Approach (ICD-10-PCS; 2024-02-24)
PROC: 5A1D70Z Performance of Urinary Filtration, Intermittent, Less than 6 Hours Per Day (ICD-10-PCS; 2024-02-25)
PROC: 5A1D70Z Performance of Urinary Filtration, Intermittent, Less than 6 Hours Per Day (ICD-10-PCS; 2024-03-01)
DX: I95.9 Hypotension, unspecified (principal); A41.9 Sepsis, unspecified organism; N18.6 End stage renal disease; N17.9 Acute kidney failure, unspecified; N39.0 Urinary tract infection, site not specified; E87.20 Acidosis, unspecified; R65.10 Systemic inflammatory response syndrome (SIRS) of non-infectious origin without acute organ dysfunction; I38 Endocarditis, valve unspecified; K92.2 Gastrointestinal hemorrhage, unspecified; N40.0 Benign prostatic hyperplasia without lower urinary tract symptoms; Z66 Do not resuscitate; B96.20 Unspecified Escherichia coli [E. coli] as the cause of diseases classified elsewhere; D64.9 Anemia, unspecified; I10 Essential (primary) hypertension; F43.20 Adjustment disorder, unspecified; Z99.2 Dependence on renal dialysis; L89.90 Pressure ulcer of unspecified site, unspecified stage; D69.6 Thrombocytopenia, unspecified; Z78.9 Other specified health status

== ENCOUNTER 2024-03-11 15:57 | Inpatient (IN) | payer OTHER ==
[~2024-03-11] VITALS: Ht 165.1 cm; Wt 61.2 kg
[~2024-03-11 15:57] MED LIST changes: +ALLOPURINOL300 MG PO; +FOLIC ACID1 MG PO; +INTEGRA PLUS C1 EACH PO; +Neurin-Sl Tablet Sl SL; +PANTOPRAZOLE SO40 MG PO; +TAMS0.4C PO; +TOPROL XL50 M1 PO
--- NOTE | 2024-03-11 16:14 | NUR ---
SE RECIBE MASCULINO ALERTA Y ORIENTADO X3 EN AMBULANCIA. PARAMEDICOS REFIEREN FUERON ACTIVADOS POR HIPOTENSION. PACIENTE REFIERE FUE DIALIZADO EL TAD DE JOJO [place] DESCON[place]E CU[place]O LIQUIDO LE FUE REMOVIDO. PACIENTE FUE DADO DE PETRA EL 03/08/24. SE MIDEN S/V, SE REALIZA EKG EL CUAL EVALUA DRA SANDY QUIEN REFIERE UBICAR A PACIENTE EN UNIDAD DE CHEST PAIN.
[2024-03-11] MEDS ORDERED: 0.9 % SODIUM CHLORIDE 500 ML IV STA (16:21)
[2024-03-11] MEDS ORDERED: PIPERACILLIN/TAZOBACTAM SODIUM 2.25 GM VIAL IV ONE (16:30)
[2024-03-11 16:53] LABS: HEMATOCRIT 30.5 % (39.0-48.0); HEMOGLOBIN 10.2 g/dL (13-16.00); MEAN CELL VOLUME 95.6 fL (80.0-100.00); MEAN CORPUSCULAR HGB CONC 33.4 g/dl (32.0-36.0); PLATELET COUNT 86 K/uL (150-450); RED CELL DISTRIBUTION WIDTH 28.7 % (11.5-14.5)
--- NOTE | 2024-03-11 17:16 | NUR ---
SE UBICA A PACIENTE EN CAMA #17 DE AREA DE CHEST PAIN, SE CONECTA MONITOR CARDIACO Y OXIMETRIA DE PULSO CONTINUA. SE REALIZA CANALIZACION EN BRAZO DERECHO CON ANGIO #18 LA CUAL SE ENCUENTRA PATENTE MEHDI DE EDEMA Y ERITEMA. SE TAYLER MUESTRAS DE LABORATORIO. SE OBSERVAN EXTREMIDADES CON EDEMA. SE MANTIENE A PACIENTE EN OBSERVACION POR CAMBIOS A PARIKH CONDICION.
[2024-03-11 17:18] LABS: INR 1.6
[2024-03-11 17:33] LABS: PARTIAL THROMBOPLASTIN TIME 38.7 SECONDS (22.0-34.0); PROTHROMBIN TIME 16.8 SECONDS (9.0-11.5)
[2024-03-11 17:44] LABS: ALBUMIN 1.1 gm/dL (3.4-5.0); BILIRUBIN TOTAL 0.76 mg/dL (0.3-1.2); CALCIUM 7.4 mg/dL (8.5-10.1); CREATININE SERUM 2.92 mg/dL (0.70-1.30); GFR 21.33; GLOBULINA 2.6 G/DL (2.4-3.5); TOTAL PROTEIN 3.7 gm/dL (6.4-8.2)
[2024-03-11 18:33] LABS: POTASSIUM 2.72 mEq/L (3.5-5.1)
[2024-03-11] MEDS ORDERED: AMINO ACIDS/PROTEIN HYDROLYS 30 ML BLIST.PACK PO SCH (20:49)
[2024-03-11] MEDS ORDERED: PANTOPRAZOLE SODIUM 40 MG/VIAL VIAL IV SCH (20:49)
[2024-03-11] MEDS ORDERED: ACETAMINOPHEN 500 MG GEL..CAP PO PRN (21:00)
[2024-03-11] MEDS ORDERED: PIPERACILLIN/TAZOBACTAM SODIUM 2.25 GM in DEXTROSE 5 % IN WATER 50 ML IV SCH (21:00)
[2024-03-11] MEDS ORDERED: NOREPINEPHRINE BITARTRATE 8 MG in DEXTROSE 5 % IN WATER 250 ML IV SCH (21:00)
[2024-03-11 23:00] VITALS: BP 70/41; O2SAT 100
[2024-03-12] VITALS (20 sets, daily range): BP systolic 66–121; BP diastolic 42–68; O2SAT 96–100
[2024-03-12 05:10] LABS: CALCIUM 7.6 mg/dL (8.5-10.1); CREATININE SERUM 3.44 mg/dL (0.70-1.30); GFR 17.65; POTASSIUM 3.01 mEq/L (3.5-5.1)
[2024-03-12 06:56] LABS: URINE APPEARANCE Turbid; URINE BILIRRUBIN Small (NEGATIVE); URINE BLOOD Large; URINE COLOR Dark Yellow; URINE GLUCOSE Negative (NEGATIVE); URINE KETONE Trace (NEGATIVE); URINE LEUKOCYTE Large; URINE NITRATE Negative; URINE UROBILINOGEN 0.2 E.U./dl
[2024-03-12 06:57] LABS: URINE EPITHELIAL CELLS 78.9 uL (0.0-38.8); URINE RBC 428.1 uL (0.0-20.8)
[2024-03-12 07:58] LABS: URINE BACTERIA > 9821.5 uL (0.0-1933); URINE PROTEIN 100 (NEGATIVE); URINE WBC > 5548.3 uL (0.0-23.2)
[2024-03-12] MEDS ORDERED: VITAMIN B COMPLEX/LYSINE 1 ML ML PO SCH (09:00)
[2024-03-12] MEDS ORDERED: ALLOPURINOL 300 MG TABLET PO SCH (09:00)
[2024-03-12] MEDS ORDERED: LACTOBACILLUS ACIDOPHILUS 1 CAP CAP PO SCH (09:04)
[2024-03-12] MEDS ORDERED: VANCOMYCIN HCL 125 MG/7.5 ML BLIST.PACK PO SCH (09:05)
[2024-03-12] MEDS ORDERED: POTASSIUM CHLORIDE IN WATER 100 ML IV SCH (14:00)
[2024-03-12 15:33] LABS: FECAL LEUKOCYTES POSITIVE (NEGATIVE)
[2024-03-12] MEDS ORDERED: AMINO ACIDS/PROTEIN HYDROLYS 30 ML BLIST.PACK PO SCH (17:00)
[2024-03-13] VITALS (8 sets, daily range): BP systolic 94–130; BP diastolic 50–73; O2SAT 97–98
[2024-03-13] MEDS ORDERED: HEPARIN SODIUM,PORCINE 1,000 UNITS/ML VIAL SPEPROC ONE (18:45)
[2024-03-14] VITALS (9 sets, daily range): BP systolic 101–138; BP diastolic 59–77; O2SAT 92–100
[2024-03-14 07:50] LABS: HEMOGLOBIN 11.4 g/dL (13-16.00); MEAN CELL VOLUME 99.4 fL (80.0-100.00); MEAN CORPUSCULAR HEMOGLOBIN 32.5 pg (27.00-32.0); MEAN CORPUSCULAR HGB CONC 32.7 g/dl (32.0-36.0); RED BLOOD COUNT 3.52 M/uL (4.00-6.00)
[2024-03-14 08:01] LABS: RED CELL DISTRIBUTION WIDTH 30.4 % (11.5-14.5)
[2024-03-14 08:02] LABS: PLATELET COUNT 84 K/uL (150-450)
[2024-03-14 08:19] LABS: ALBUMIN 1.1 gm/dL (3.4-5.0); BILIRUBIN TOTAL 0.83 mg/dL (0.3-1.2); CALCIUM 8.2 mg/dL (8.5-10.1); GFR 13.18; GLOBULINA 3.1 G/DL (2.4-3.5); POTASSIUM 4.36 mEq/L (3.5-5.1); TOTAL PROTEIN 4.2 gm/dL (6.4-8.2)
[2024-03-14 09:09] LABS: CREATININE SERUM 4.43 mg/dL (0.70-1.30)
[2024-03-15] VITALS (20 sets, daily range): BP systolic 100–147; BP diastolic 60–82; O2SAT 96–100
[2024-03-15] MEDS ORDERED: MIDODRINE HCL 5 MG TABLET PO SCH (09:00)
[2024-03-16] VITALS (19 sets, daily range): BP systolic 82–122; BP diastolic 51–79; O2SAT 96–100
[2024-03-16 05:20] LABS: HEMATOCRIT 30.2 % (39.0-48.0); HEMOGLOBIN 10.1 g/dL (13-16.00); MEAN CELL VOLUME 100.5 fL (80.0-100.00); MEAN CORPUSCULAR HEMOGLOBIN 33.8 pg (27.00-32.0); MEAN CORPUSCULAR HGB CONC 33.6 g/dl (32.0-36.0)
[2024-03-16 05:21] LABS: PLATELET COUNT 44 K/uL (150-450); RED CELL DISTRIBUTION WIDTH 30.3 % (11.5-14.5)
[2024-03-16 05:37] LABS: BILIRUBIN TOTAL 0.86 mg/dL (0.3-1.2); CALCIUM 7.9 mg/dL (8.5-10.1); CREATININE SERUM 3.44 mg/dL (0.70-1.30); GFR 17.65; GLOBULINA 2.5 G/DL (2.4-3.5); POTASSIUM 3.04 mEq/L (3.5-5.1); TOTAL PROTEIN 3.5 gm/dL (6.4-8.2)
[2024-03-16 22:09] LABS: CALCIUM 7.9 mg/dL (8.5-10.1); CREATININE SERUM 2.18 mg/dL (0.70-1.30); GFR 29.88; POTASSIUM 3.11 mEq/L (3.5-5.1)
[2024-03-16] MEDS ORDERED: POTASSIUM CHLORIDE 20MEQ/100ML H2O PB IV SCH (22:43)
[2024-03-17] VITALS (10 sets, daily range): BP systolic 77–116; BP diastolic 50–76; O2SAT 95–100
[2024-03-17] MEDS ORDERED: TAMSULOSIN HCL 0.4 MG CAP PO SCH (21:47)
[2024-03-18] VITALS (16 sets, daily range): BP systolic 70–119; BP diastolic 47–77; O2SAT 89–98
[2024-03-18 06:19] LABS: HEMATOCRIT 33.8 % (39.0-48.0); HEMOGLOBIN 11.9 g/dL (13-16.00); MEAN CELL VOLUME 100.8 fL (80.0-100.00); MEAN CORPUSCULAR HEMOGLOBIN 35.6 pg (27.00-32.0); MEAN CORPUSCULAR HGB CONC 35.3 g/dl (32.0-36.0); RED BLOOD COUNT 3.36 M/uL (4.00-6.00)
[2024-03-18 06:33] LABS: PLATELET COUNT 56 K/uL (150-450); RED CELL DISTRIBUTION WIDTH 31.4 % (11.5-14.5)
[2024-03-18 07:10] LABS: ALBUMIN 1.1 gm/dL (3.4-5.0); BILIRUBIN TOTAL 0.75 mg/dL (0.3-1.2); CALCIUM 8.3 mg/dL (8.5-10.1); CREATININE SERUM 2.7 mg/dL (0.70-1.30); GFR 23.34; GLOBULINA 2.5 G/DL (2.4-3.5); POTASSIUM 3.54 mEq/L (3.5-5.1); PROSTATIC SPECIFIC ANTIGEN 1.84 NG/ML (0.010-4.00); TOTAL PROTEIN 3.6 gm/dL (6.4-8.2)
[2024-03-18] MEDS ORDERED: NYSTATIN 30 GM,ZINC OXIDE 30 GM,SILVER SULFADIAZINE 50 GM TOP PRN (08:45)
[2024-03-18] MEDS ORDERED: FAMOTIDINE/PF 20 MG in 0.9 % SODIUM CHLORIDE 100 ML IV SCH (09:00)
[2024-03-18] MEDS ORDERED: FINASTERIDE 5 MG TABLET PO SCH (09:00)
[2024-03-18] MEDS ORDERED: VANCOMYCIN HCL 1,000 MG VIAL IV ONE (18:15)
[2024-03-18] MEDS ORDERED: GENTAMICIN SULFATE 40 MG/ML VIAL IV ONE (18:15)
[2024-03-19] VITALS (14 sets, daily range): BP systolic 74–121; BP diastolic 52–74; O2SAT 92–100
[2024-03-19] MEDS ORDERED: MIDODRINE HCL 5 MG TABLET PO SCH (01:00)
[2024-03-19 15:03] LABS: HEMATOCRIT 34.8 % (39.0-48.0); HEMOGLOBIN 11.4 g/dL (13-16.00); MEAN CELL VOLUME 102.8 fL (80.0-100.00); MEAN CORPUSCULAR HEMOGLOBIN 33.8 pg (27.00-32.0); MEAN CORPUSCULAR HGB CONC 32.8 g/dl (32.0-36.0); RED BLOOD COUNT 3.39 M/uL (4.00-6.00)
[2024-03-19 15:06] LABS: PLATELET COUNT 32 K/uL (150-450); RED CELL DISTRIBUTION WIDTH 31.9 % (11.5-14.5)
[2024-03-19 15:14] LABS: ALBUMIN 1.1 gm/dL (3.4-5.0); BILIRUBIN TOTAL 1.04 mg/dL (0.3-1.2); CALCIUM 7.8 mg/dL (8.5-10.1); CREATININE SERUM 2.31 mg/dL (0.70-1.30); GFR 27.95; GLOBULINA 2.9 G/DL (2.4-3.5); POTASSIUM 3.2 mEq/L (3.5-5.1)
[2024-03-19 15:22] LABS: INR 1.64
[2024-03-19 15:43] LABS: PROTHROMBIN TIME 17.2 SECONDS (9.0-11.5)
[2024-03-20] VITALS (16 sets, daily range): BP systolic 54–128; BP diastolic 44–101; O2SAT 98–100
[2024-03-20] MEDS ORDERED: GENTAMICIN SULFATE 40 MG/ML VIAL IV SCH (09:00)
[2024-03-20] MEDS ORDERED: POTASSIUM CHLORIDE 20MEQ/100ML H2O PB IV ONE (11:00)
[2024-03-20] MEDS ORDERED: CEFEPIME HCL 1,000 MG VIAL IV STA (11:33)
[2024-03-20] MEDS ORDERED: DEXTROSE 50 % IN WATER 0.5 G/ML VIAL IV STA (23:40)
[2024-03-21] VITALS (21 sets, daily range): BP systolic 87–127; BP diastolic 46–80; O2SAT 90–100
[2024-03-21] MEDS ORDERED: CEFEPIME HCL 1,000 MG VIAL IV SCH (09:00)
[2024-03-21 11:41] LABS: HEMATOCRIT 35.9 % (39.0-48.0); HEMOGLOBIN 12.3 g/dL (13-16.00); MEAN CELL VOLUME 100.8 fL (80.0-100.00); MEAN CORPUSCULAR HEMOGLOBIN 34.6 pg (27.00-32.0); MEAN CORPUSCULAR HGB CONC 34.3 g/dl (32.0-36.0); RED BLOOD COUNT 3.56 M/uL (4.00-6.00)
[2024-03-21 11:55] LABS: CALCIUM 8.4 mg/dL (8.5-10.1); CREATININE SERUM 2.06 mg/dL (0.70-1.30); GFR 31.9; POTASSIUM 3.21 mEq/L (3.5-5.1)
[2024-03-21 11:57] LABS: RED CELL DISTRIBUTION WIDTH 33.2 % (11.5-14.5)
[2024-03-21 11:59] LABS: MANUAL PLATELET COUNT 20; PLATELET COUNT 21 K/uL (150-450)
[2024-03-21 12:01] LABS: INR 1.43
[2024-03-21 12:07] LABS: PARTIAL THROMBOPLASTIN TIME 52.6 SECONDS (22.0-34.0); PROTHROMBIN TIME 15.2 SECONDS (9.0-11.5)
[2024-03-21] MEDS ORDERED: POTASSIUM CHLORIDE IN WATER 100 ML IV SCH (17:41)
[2024-03-22] VITALS (12 sets, daily range): BP systolic 90–131; BP diastolic 52–86; O2SAT 90–98
[2024-03-22 06:35] LABS: HEMATOCRIT 33.3 % (39.0-48.0); HEMOGLOBIN 11.3 g/dL (13-16.00); MEAN CELL VOLUME 101.4 fL (80.0-100.00); MEAN CORPUSCULAR HEMOGLOBIN 34.5 pg (27.00-32.0); MEAN CORPUSCULAR HGB CONC 34.1 g/dl (32.0-36.0); RED BLOOD COUNT 3.28 M/uL (4.00-6.00)
[2024-03-22 06:37] LABS: ERYTHROCYTE SEDIMENTATION RATE 5 mm/hr; RED CELL DISTRIBUTION WIDTH 32.6 % (11.5-14.5)
[2024-03-22 06:46] LABS: PLATELET COUNT 20 K/uL (150-450)
[2024-03-22 06:49] LABS: CREATININE SERUM 2.24 mg/dL (0.70-1.30); GFR 28.96; POTASSIUM 3.65 mEq/L (3.5-5.1)
[2024-03-22 06:50] LABS: C-REACTIVE PROTEIN 12.8 MG/DL (0.00-0.29)
[2024-03-22 08:10] LABS: MANUAL PLATELET COUNT 22
[2024-03-22] MEDS ORDERED: PANTOPRAZOLE SODIUM 40 MG/VIAL VIAL IV SCH (09:10)
[2024-03-22] MEDS ORDERED: CEFTAZIDIME/AVIBACTAM 0.94GM/100ML NSS PB IV STA (13:14)
[2024-03-23] VITALS (22 sets, daily range): BP systolic 106–156; BP diastolic 64–96; O2SAT 93–97
[2024-03-23 09:24] LABS: ABG PH 7.407 (7.35-7.45); ABG PO2 60.8 mmHg (80-100); ABG pCO2 34.9 mmHg (35-45); BASE EXCESS -2.4 mmol/l; BICARBONATE 21.5 mmol/l (23-25); Tco2 22.6 mmol/l; allen test SATISFACTORY; o2 100 %; puncture site RADIAL RIGHT
[2024-03-23 10:10] LABS: IMMUNOGLOBULIN A 230 mg/dL (61-437); IMMUNOGLOBULIN G 1036 mg/dL (603-1613); IMMUNOGLOBULIN M 130 mg/dL (15-143)
[2024-03-23] MEDS ORDERED: CEFTAZIDIME/AVIBACTAM 0.94GM/100ML NSS PB IV SCH (17:00)
[2024-03-24] VITALS (19 sets, daily range): BP systolic 76–134; BP diastolic 50–95; O2SAT 84–100
[2024-03-24] MEDS ORDERED: HYDROCORTISONE SODIUM SUCC/PF 50 MG/ML ML IV SCH (12:00)
[2024-03-24 15:37] LABS: ABG PH 7.364 (7.35-7.45); ABG PO2 48.7 mmHg (80-100); ABG pCO2 38.2 mmHg (35-45); BASE EXCESS -3.6 mmol/l; SaO2 82.1 %
[2024-03-24 15:38] LABS: BICARBONATE 21.3 mmol/l (23-25); Tco2 22.5 mmol/l; allen test SATISFACTORY; o2 100 %; puncture site RADIAL RIGHT
[2024-03-24 15:39] LABS: ABG PH 7.386 (7.35-7.45); ABG PO2 81.3 mmHg (80-100); ABG pCO2 34.9 mmHg (35-45); BASE EXCESS -3.7 mmol/l; SaO2 95.6 %
[2024-03-24 15:40] LABS: BICARBONATE 20.5 mmol/l (23-25); Tco2 21.5 mmol/l; allen test SATISFACTORY; o2 100 %; puncture site RADIAL LEFT
[2024-03-25] VITALS (11 sets, daily range): BP systolic 92–112; BP diastolic 54–71; O2SAT 89–100
[2024-03-25 11:40] LABS: ABG PH 7.338 (7.35-7.45); ABG pCO2 36.6 mmHg (35-45); BASE EXCESS -5.9 mmol/l; BICARBONATE 19.2 mmol/l (23-25); SaO2 99.3 %; Tco2 20.3 mmol/l
[2024-03-25 11:41] LABS: allen test SATISFACTORY; o2 100 %; puncture site RADIAL LEFT
[2024-03-25] MEDS ORDERED: CEFTAZIDIME/AVIBACTAM 0.94GM/100ML NSS PB IV SCH (17:00)
[2024-03-26 00:49] VITALS: O2SAT 90
[2024-03-26 02:02] VITALS: BP 130/75; O2SAT 95
[2024-03-26 05:43] VITALS: O2SAT 90
[2024-03-26 08:00] VITALS: BP 70/49; O2SAT 94
[2024-03-26 09:47] VITALS: BP 70/40
[2024-03-26] MEDS ORDERED: AA 4.25%/CAL/LYTES/DEXT 5% 1,000 ML PERIFERAL SCH (17:00)
[2024-03-29 08:59] LABS: a:g ratio 0.8 (0.7-1.7); alpha 1 g 0.3 g/dL (0.0-0.4); alpha 2 0.3 g/dL (0.4-1.0); beta g 0.4 g/dL (0.7-1.3); gamma g 0.9 g/dL (0.4-1.8); prot total 3.6 g/dL (6.0-8.5)
[2024-04-05 09:48] LABS: kappa lambda r 0.94 (0.26-1.65); kappa light 151.7 mg/L (3.3-19.4); lambda light 160.7 mg/L (5.7-26.3)
== END 2024-03-26 21:24 | disposition expired | DRG 853 ==
LOC: ER 15:57 → ICU-2 21:46 → MEDJ 03-25 14:32
PROVIDERS: Emergency Medicine; General Practice; Internal Medicine; Internal Medicine Geriatric Medicine; Internal Medicine Hematology & Oncology; Specialist/Technologist, Other Nephrology; ADMIT Internal Medicine; ATTEND Internal Medicine
PROC: BW21ZZZ Computerized Tomography (CT Scan) of Abdomen and Pelvis (ICD-10-PCS; 2024-03-11)
PROC: BW24ZZZ Computerized Tomography (CT Scan) of Chest and Abdomen (ICD-10-PCS; 2024-03-11)
PROC: B24BZZZ Ultrasonography of Heart with Aorta (ICD-10-PCS; 2024-03-12)
PROC: 02HV33Z Insertion of Infusion Device into Superior Vena Cava, Percutaneous Approach (ICD-10-PCS; 2024-03-12)
PROC: 5A1D70Z Performance of Urinary Filtration, Intermittent, Less than 6 Hours Per Day (ICD-10-PCS; 2024-03-14)
PROC: 0W993ZZ Drainage of Right Pleural Cavity, Percutaneous Approach (ICD-10-PCS; 2024-03-17)
PROC: BW4GZZZ Ultrasonography of Pelvic Region (ICD-10-PCS; 2024-03-18)
PROC: 0W9B3ZZ Drainage of Left Pleural Cavity, Percutaneous Approach (ICD-10-PCS; 2024-03-19)
PROC: B24BZZZ Ultrasonography of Heart with Aorta (ICD-10-PCS; 2024-03-21)
PROC: 30233N1 Transfusion of Nonautologous Red Blood Cells into Peripheral Vein, Percutaneous Approach (ICD-10-PCS; 2024-03-22)
PROC: 0JD70ZZ Extraction of Back Subcutaneous Tissue and Fascia, Open Approach (ICD-10-PCS; principal; 2024-03-25)
PROC: 4A12X4Z Monitoring of Cardiac Electrical Activity, External Approach (ICD-10-PCS; 2024-03-25)
DX: A41.89 Other specified sepsis (principal); E43 Unspecified severe protein-calorie malnutrition; G93.41 Metabolic encephalopathy; J96.01 Acute respiratory failure with hypoxia; N18.6 End stage renal disease; R65.21 Severe sepsis with septic shock; J96.02 Acute respiratory failure with hypercapnia; I13.2 Hypertensive heart and chronic kidney disease with heart failure and with stage 5 chronic kidney disease, or end stage renal disease; N17.9 Acute kidney failure, unspecified; C79.51 Secondary malignant neoplasm of bone; A04.72 Enterocolitis due to Clostridium difficile, not specified as recurrent; E87.6 Hypokalemia; Z99.2 Dependence on renal dialysis; E86.0 Dehydration; Z74.01 Bed confinement status; I95.89 Other hypotension; I50.9 Heart failure, unspecified; D63.1 Anemia in chronic kidney disease; N40.0 Benign prostatic hyperplasia without lower urinary tract symptoms; D69.6 Thrombocytopenia, unspecified; L89.329 Pressure ulcer of left buttock, unspecified stage; L08.9 Local infection of the skin and subcutaneous tissue, unspecified; B95.2 Enterococcus as the cause of diseases classified elsewhere; B96.89 Other specified bacterial agents as the cause of diseases classified elsewhere; L89.152 Pressure ulcer of sacral region, stage 2; R57.1 Hypovolemic shock; B96.1 Klebsiella pneumoniae [K. pneumoniae] as the cause of diseases classified elsewhere